=== PATIENT | male | born 1990 | race Caucasian/White ===

== ENCOUNTER 2017-12-01 18:19 | Emergency (ER) | END 2017-12-02 01:47 | disposition home or self-care (01) ==

== ENCOUNTER 2018-12-05 14:43 | Emergency (ER) | payer MEDICAID, OTHER ==
[~2018-12-05] VITALS: Ht 167.6 cm; Wt 85.0 kg
[~2018-12-05 14:43] MED LIST: CIPR500T4 PO; HYDR-4011 PO; METR500T PO; ONDA4TAB14 PO
[2018-12-05 14:47] VITALS: BP 158/106; PULSE 85; RESP 16; Ht 167.6 cm; Wt 85.0 kg
[2018-12-05] MEDS ORDERED: KETOROLAC 30 MG INJ IV STA (16:02)
[2018-12-05] MEDS ORDERED: KETOROLAC 30 MG INJ IM STA (16:08)
--- NOTE | 2018-12-05 16:29 | ERD ---
ER Documentation Chief Complaint Chief Complaint bodyaches x 1 week HPI 28-year-old male with past medical history who presents with complaint of generalized body aches and pain over 1 week. Was seen in ED 2 on the fifth of last month for similar complaints. At time of evaluation when asked if patient had any recent prior ED visits he however denied. He reports a number of pain complaints including generalized pain, bilateral knee pain, buttock pain, lower back pain, generalized abdominal pain, headache. Of all these pain complaints he is most concerned about right hand pain. He occasionally works as a laborer driver. Denies any recent injury to hand exam at the time of evaluation unremarkable with 5 out of 5 strength to both upper extremities. He denies any history of injury. He denies rash. He fevers, chills, SOB, persistent vomiting. He denies any red flag symptoms. ROS All systems reviewed and are negative except as per history of present illness. Medications Home Meds Active Scripts Ondansetron (Ondansetron Odt) 4 Mg Tab.rapdis, 4 MG PO Q6H PRN for NAUSEA AND/OR VOMITING, #20 TAB Prov:RICH GIMENEZ BAR HOST/HOSTESS 12/02/17 Metronidazole* (Flagyl*) 500 Mg Tablet, 500 MG PO TID for 10 Days, TAB Prov:RICH GIMENEZ BAR HOST/HOSTESS 12/02/17 Ciprofloxacin Hcl* (Ciprofloxacin Hcl*) 500 Mg Tablet, 500 MG PO BID for 10 Days, TAB Prov:RICH GIMENEZ BAR HOST/HOSTESS 12/02/17 Hydrocodone/Acetaminophen ([place] 5-325 Tablet) 1 Each Tablet, 1 TAB PO Q6H PRN for PAIN, #20 TAB Prov:RICH GIMENEZ BAR HOST/HOSTESS 12/02/17 Reported Medications [none] Unknown Strength No Conflict Check 12/01/17 Allergies Allergies: Coded Allergies: No Known Drug Allergies (Verified Allergy, Unknown, 12/05/18) PMhx/Soc Medical and Surgical Hx: pt denies Medical Hx, pt denies Surgical Hx Hx Alcohol Use: Yes (SOCIAL) Hx Substance Use: Yes (MARIJUANA last used 1 week ago) Hx Tobacco Use: No Physical Exam Vitals Vital Signs Date Temp Pulse Resp B/P (MAP) Pulse Ox O2 O2 Flow FiO2 Time Delivery Rate 12/05/18 99.0 85 16 158/106 99 14:47 (123) Physical Exam I have reviewed the triage vital signs. Const: Well nourished, well developed, appears stated age Eyes: PERRL, no conjunctival injection HENT: NCAT, Neck supple without meningismus CV: RRR, Warm, well-perfused extremities RESP: CTAB, Unlabored respiratory effort GI: soft, tenderness to RUQ but no tenderness when distracted with use of stethoscope, non-distended, no masses MSK: No gross deformities appreciated, full ROM to UE/LE, no signs injury, 5/5 strength throughout UE/LE, good hand strength b/l Skin: Warm, dry. No rashes Neuro: Alert, building maintenance custodian II-XII grossly intact. Sensation and motor function of extremities grossly intact. Psych: Appropriate mood and affect. Results 24 hrs Current Medications Medications Dose Sig/Kate Start Time Status Last (Trade) Ordered Route PRN Stop Time Admin Dose Reason Admin Ketorolac 30 mg ONCE STAT 12/05/18 DC Tromethamine IV 16:02 12/05/18 (Toradol) 16:04 Procedures/MDM 28 yo M admitted with multiple pain complaints. Evaluation and exam not concerning for any acute process warranting emergency room intervention. ED course: Toradol I discussed the patient's recurrent pain issues with the patient. I emphasized that my training was in the treatment of acute pain, that his physical exam here is quite reassuring, and that definitive treatment of chronic pain is not the role of the emergency department. I compassionately explained to patient that I felt providing opiate medications from the emergency department was counterproductive in that this may cause or exacerbate tolerance, acute overdose, physiological or psychological dependence, or withdrawal. We discussed that opiate use in the management of chronic pain is best managed by a single practitioner, such as a primary care provider or a pain specialist. We discussed adjunctive therapies such as heat, ice, and exercise, as well as non-opiate medications such as acetaminophen, NSAIDs, antidepressants, gabapentin, and pregabalin. I reiterated to patient that the most effective management of his chronic pain involves a multimodal approach coordinated by his primary care provider and often includes physical therapy, cognitive behavioral therapy, and referrals to practitioners such as anesthesiologists trained in chronic pain management. Departure Condition: Stable Referrals: [facility] ROMEO SOW PA-C Dec 05, 2018 16:20
[2018-12-05] MEDS ORDERED: OXYC-279 PO (16:30)
== END 2018-12-05 16:36 | disposition home or self-care (01) ==
LOC: FTE 14:43
DX: M25.561 Pain in right knee (principal); M25.562 Pain in left knee; M54.5 Low back pain; R10.84 Generalized abdominal pain; R51 Headache; M79.641 Pain in right hand
CPT/HCPCS: 96372; J1885; Z7502

== ENCOUNTER 2019-01-05 09:19 | Emergency (ER) | payer MEDICAID ==
[~2019-01-05] VITALS: Ht 162.6 cm; Wt 83.3 kg
[~2019-01-05 09:19] MED LIST changes: +OXYC-279 PO
[2019-01-05 10:05] VITALS: Ht 162.6 cm; Wt 83.3 kg
[2019-01-05] MEDS ORDERED: SOD CHLORIDE 0.9% 100 ML ONE (13:22)
[2019-01-05] MEDS ORDERED: IOHEXOL 300MG/ML 150 ML BTL ONE (13:22)
[2019-01-05] MEDS ORDERED: DOCU-144 PO (14:14)
[2019-01-05] MEDS ORDERED: ACET500C5 PO (14:14)
--- NOTE | 2019-01-05 14:19 | ERD ---
ER Documentation Chief Complaint Chief Complaint 1) BLOOD IN STOOL X1 WEEK 2) LT ELBOW PAIN X1.5 MONTHS HPI 28-year-old male presents with intermittent blood per rectum on his stool for last week. He may have mild sensation of pain. He may have a history of constipation. He denies diarrhea, vomiting, fevers, abdominal pain. Eyes any foreign travel or suspect food. Blood is bright red and was associated with bowel movement. Denies clots. ROS All systems reviewed and are negative except as per history of present illness. Medications Home Meds Active Scripts Acetaminophen* (Tylophen*) 500 Mg Capsule, 1 CAP PO Q6H PRN for PAIN AND OR ELEVATED TEMP, #20 CAP Prov:OLI EASTMAN MD 01/05/19 Docusate Sodium* (Colace*) 100 Mg Capsule, 100 MG PO BID, #60 CAP Prov:OLI EASTMAN MD 01/05/19 Oxycodone HCl/Acetaminophen (Percocet 5-325 mg Tablet) 1 Each Tablet, 1 EACH PO Q4, #7 TAB Prov:ROMEO SOW PA-C 12/05/18 Ondansetron (Ondansetron Odt) 4 Mg Tab.rapdis, 4 MG PO Q6H PRN for NAUSEA AND/OR VOMITING, #20 TAB Prov:RICH GIMENEZ NP 12/02/17 Metronidazole* (Flagyl*) 500 Mg Tablet, 500 MG PO TID for 10 Days, TAB Prov:RICH GIMENEZ NP 12/02/17 Ciprofloxacin Hcl* (Ciprofloxacin Hcl*) 500 Mg Tablet, 500 MG PO BID for 10 Days, TAB Prov:RICH GIMENEZ NP 12/02/17 Hydrocodone/Acetaminophen ([place] 5-325 Tablet) 1 Each Tablet, 1 TAB PO Q6H PRN for PAIN, #20 TAB Prov:RICH GIMENEZ NP 12/02/17 Reported Medications [none] Unknown Strength No Conflict Check 12/01/17 Allergies Allergies: Coded Allergies: No Known Drug Allergies (Verified Allergy, Unknown, 12/05/18) PMhx/Soc Medical and Surgical Hx: pt denies Medical Hx, pt denies Surgical Hx Hx Alcohol Use: Yes (stopped) Hx Substance Use: Yes (MARIJUANA stopped) Hx Tobacco Use: No FmHx Family History: No diabetes, No coronary disease, No other Physical Exam Vitals Vital Signs Date Temp Pulse Resp B/P (MAP) Pulse Ox O2 O2 Flow FiO2 Time Delivery Rate 01/05/19 98.4 66 18 129/60 98 Room Air 14:34 (83) 01/05/19 98.7 87 16 140/72 97 10:05 (94) Physical Exam Const: No acute distress Head: Atraumatic Eyes: Normal Conjunctiva ENT: Normal External Ears, Nose and Mouth. Neck: Full range of motion. No meningismus. Resp: Clear to auscultation bilaterally Cardio: Regular rate and rhythm, no murmurs Abd: Soft, non tender, non distended. Normal bowel sounds. Rectal exam shows brown stool without gross blood or melanotic stool. No rectal lesions or palpable internal lesions. Skin: No petechiae or rashes Back: No midline or flank tenderness Ext: No cyanosis, or edema Neur: Awake and alert Psych: Normal Mood and Affect Result Diagram: 01/05/19 1123 01/05/19 1123 Results 24 hrs Laboratory Tests Test 01/05/19 11:23 White Blood Count 6.1 10^3/ul Red Blood Count 5.19 10^6/ul Hemoglobin 15.2 g/dl Hematocrit 44.8 % Mean Corpuscular Volume 86.3 fl Mean Corpuscular Hemoglobin 29.3 pg Mean Corpuscular Hemoglobin Concent 33.9 g/dl Red Cell Distribution Width 12.2 % Platelet Count 361 10^3/UL Mean Platelet Volume 10.8 fl Immature Granulocytes % 0.300 % Neutrophils % 57.8 % Lymphocytes % 28.6 % Monocytes % 7.7 % Eosinophils % 4.6 % Basophils % 1.0 % Nucleated Red Blood Cells % 0.0 /100WBC Immature Granulocytes # 0.020 10^3/ul Neutrophils # 3.5 10^3/ul Lymphocytes # 1.7 10^3/ul Monocytes # 0.5 10^3/ul Eosinophils # 0.3 10^3/ul Basophils # 0.1 10^3/ul Nucleated Red Blood Cells # 0.0 10^3/ul Sodium Level 142 mmol/L Potassium Level 3.9 mmol/L Chloride Level 102 mmol/L Carbon Dioxide Level 27 mmol/L Anion Gap 13 Blood Urea Nitrogen 11 mg/dl Creatinine 0.86 mg/dl Est Glomerular Filtrat Rate mL/min > 60 mL/min Glucose Level 94 mg/dl Calcium Level 10.2 mg/dl Total Bilirubin 0.3 mg/dl Direct Bilirubin 0.00 mg/dl Indirect Bilirubin 0.3 mg/dl Aspartate Amino Transf (AST/SGOT) 21 IU/L Alanine Aminotransferase (ALT/SGPT) 21 IU/L Alkaline Phosphatase 62 IU/L Total Protein 8.2 g/dl Albumin 4.9 g/dl Globulin 3.30 g/dl Albumin/Globulin Ratio 1.48 Lipase 48 U/L Current Medications Medications Dose Sig/Kate Start Time Status Last (Trade) Ordered Route PRN Stop Time Admin Dose Reason Admin IV Flush 10 ml STK-MED 01/05/19 DC 01/05/19 (NS 10 ml) ONCE .ROUTE 13:01/05/19 13:37 13:23 Sodium 100 ml @ ud STK-MED 01/05/19 DC 01/05/19 Chloride ONCE .ROUTE 13:01/05/19 13:37 13:23 Iohexol 150 ml STK-MED 01/05/19 DC 01/05/19 (Omnipaque ONCE .ROUTE 13:01/05/19 13:37 300mg/ ml) 13:23 Procedures/MDM CBC and CMP normal. CT shows nonspecific thickening possibly under distention of the rectal area as well as under distention of the bladder. Patient denies any urinary complaints. Patient presents with rectal bleed for last week. We will treat empirically for constipation and internal hemorrhoids with Colace and Tylenol. Patient was advised that next step would be gastroenterology for colonoscopy for persistent symptoms. He has no signs of abdominal pain, obstruction, abscess, additional concerning symptoms. Patient has no active bleeding during ER course. The patient was stable with no new complaints during the ER course. Clinically, there is no current evidence to suggest meningitis, sepsis, acute abdomen, pneumonia, stroke, acute coronary syndrome, pulmonary embolism, aortic dissection or any other emergent condition appearing to require further evaluation or hospitalization. Patient counseled regarding my diagnostic impression and care plan. Prior to discharge all questions answered. Pt agrees with treatment plan and understands strict return precautions. Pt is instructed to follow up with primary care provider within 24-48 hours. Precautionary instructions provided including instructions to return to the ER if not improving or for any worsening or changing symptoms or concerns. Departure Diagnosis: Primary Impression: Rectal bleed Condition: Stable Patient Instructions: Rectal Bleed, Stable Referrals: SRINIVASA KELLER MD [facility] YOU HAVE RECEIVED A MEDICAL SCREENING EXAM AND THE RESULTS INDICATE THAT YOU DO NOT HAVE A CONDITION THAT REQUIRES URGENT TREATMENT IN THE EMERGENCY DEPARTMENT. FURTHER EVALUATION AND TREATMENT OF YOUR CONDITION CAN WAIT UNTIL YOU ARE SEEN IN YOUR DOCTORS OFFICE WITHIN THE NEXT 1-2 DAYS. IT IS YOUR RESPONSIBILITY TO MAKE AN APPOINTMENT FOR FOLOW-UP CARE. IF YOU HAVE A PRIMARY DOCTOR --you should call your primary doctor and schedule an appointment IF YOU DO NOT HAVE A PRIMARY DOCTOR YOU CAN CALL OUR PHYSICIAN REFERRAL HOTLINE AT IF YOU CAN NOT AFFORD TO SEE A PHYSICIAN YOU CAN CHOSE FROM THE FOLLOWING [facility] [address] [facility] [address] [facility] [facility] [address] [facility] [address] [place] [address] [facility]. [facility]. [address] Additional Instructions: Blood work normal. CT shows nonspecific findings of thickening. Recommend colonoscopy. Persistent symptoms. Will treat for constipation. Recheck for fevers, new worsening symptoms. May need authorization from primary doctor for specialist visit. OLI EASTMAN MD Jan 05, 2019 14:19
[2019-01-05 14:34] VITALS: BP 129/60; PULSE 66; RESP 18
== END 2019-01-05 14:37 | disposition home or self-care (01) ==
LOC: FTE 09:19
DX: K62.5 Hemorrhage of anus and rectum (principal)
CPT/HCPCS: 36415; 74177; 80053; 83690; 85025; Q9967; Z7502; Z7610

== ENCOUNTER 2019-01-26 08:19 | Day surgery (SDC) | payer MEDICAID ==
[~2019-01-26] VITALS: Ht 167.6 cm; Wt 80.3 kg
[~2019-01-26 08:19] MED LIST changes: +ACET500C5 PO; +DOCU-144 PO
[2019-01-26] MEDS ORDERED: AMOXICILLIN (08:58)
[2019-01-26] MEDS ORDERED: TYLENOL PRN (08:58)
[2019-01-26 09:04] VITALS: Ht 167.6 cm; Wt 80.3 kg
[2019-01-26 09:28] VITALS: BP 127/73; PULSE 63; RESP 19
--- NOTE | 2019-01-26 09:47 | PREAC ---
Date/Time of Note Date/Time of Note DATE: 01/26/19 TIME: 09:45 Anesthesia Eval and Record Evaluation Time Pre-Procedure Interview DATE: 01/26/19 TIME: 09:45 Age 28 Sex male NPO: 8 hrs Preoperative diagnosis Abdominal Pain and Rectal Bleeding Planned procedure EGD, Colonoscopy Past Medical History Past Medical History: Includes Recreational drugs: Marijuana, Cocaine Surgery & Anesthesia Issues No known issue Meds Anticoagulation: No Beta Ny within 24 hr: No Reason Beta Ny not given: Pt. not on B-Ny Reported Medications [Tylenol Prn] No Conflict Check 01/26/19 [Amoxicillin] No Conflict Check 01/26/19 Discontinued Reported Medications [none] Unknown Strength No Conflict Check 12/01/17 Discontinued Scripts Acetaminophen* (Tylophen*) 500 Mg Capsule, 1 CAP PO Q6H PRN for PAIN AND OR ELEVATED TEMP, #20 CAP Prov:OLI EASTMAN MD 01/05/19 Docusate Sodium* (Colace*) 100 Mg Capsule, 100 MG PO BID, #60 CAP Prov:OLI EASTMAN MD 01/05/19 Oxycodone HCl/Acetaminophen (Percocet 5-325 mg Tablet) 1 Each Tablet, 1 EACH PO Q4, #7 TAB Prov:ROMEO SOW PA-C 12/05/18 Ondansetron (Ondansetron Odt) 4 Mg Tab.rapdis, 4 MG PO Q6H PRN for NAUSEA AND/OR VOMITING, #20 TAB Prov:RICH GIMENEZ NP 12/02/17 Metronidazole* (Flagyl*) 500 Mg Tablet, 500 MG PO TID for 10 Days, TAB Prov:RICH GIMENEZ NP 12/02/17 Ciprofloxacin Hcl* (Ciprofloxacin Hcl*) 500 Mg Tablet, 500 MG PO BID for 10 Days, TAB Prov:RICH GIMENEZ NP 12/02/17 Hydrocodone/Acetaminophen ([place] 5-325 Tablet) 1 Each Tablet, 1 TAB PO Q6H PRN for PAIN, #20 TAB Prov:RICH GIMENEZ NP 12/02/17 Meds reviewed: Yes Allergies Coded Allergies: No Known Drug Allergies (Verified Allergy, Unknown, 12/05/18) Allergies Reviewed: Yes Labs/Studies Labs Reviewed: Reviewed by anesthesiologist test: N/A Studies: ECG (n/a), CXR (n/a) Pre-procedure Exam Last vitals Vital Signs Date Temp Pulse Resp B/P (MAP) Pulse Ox O2 O2 Flow FiO2 Time Delivery Rate 01/26/19 97.7 63 19 127/73 99 Room Air 09:28 (91) Airway: Adequate mouth opening, Adequate thyromental dist Mallampati: Mallampati II Teeth: Normal Lung: Normal Heart: Normal ASA Physical Status ASA physical status: 2 Emergency: None Planned Anesthetic General/MAC: MAC Planned Pain Management Parenteral pain med Pre-operative Attestations Prior to commencing anesthesia and surgery, the patient was re-evaluated, there was verification of: *The patient's identity *The results of appropriate recent lab work and preoperative vital signs *The above evaluation not changing prior to induction *Anesthetic plan, risk benefits, alternative and complications discussed with patient/family; questions answered; patient/family understands, accepts and wishes to proceed. VIC MENJIVAR MD Jan 26, 2019 09:47
[2019-01-26] MEDS ORDERED: PROPOFOL 60 ML ONE (10:51)
--- NOTE | 2019-01-26 10:52 | PAC ---
Date/Time of Note Date/Time of Note DATE: 01/26/19 TIME: 10:51 Post-Anesthesia Notes Post-Anesthesia Note Last documented vital signs Vital Signs Date Temp Pulse Resp B/P (MAP) Pulse Ox O2 O2 Flow FiO2 Time Delivery Rate 01/26/19 97.7 63 19 127/73 99 Room Air 10:52 (91) Activity: WNL Respiratory function: WNL Cardiovascular function: WNL Mental status: Baseline Pain reasonably controlled: Yes Hydration appropriate: Yes Nausea/Vomiting absent: Yes VIC MENJIVAR MD Jan 26, 2019 10:52
[2019-01-26 11:17] VITALS: BP 103/52; PULSE 68; RESP 18
--- NOTE | 2019-01-27 14:08 | CONS ---
DATE OF ADMISSION: 01/26/2019 DATE OF CONSULTATION: PATIENT NAME: WILMER WILL TYPE OF CONSULTATION: Preoperative gastroenterology. I thank you very much for this kind referral. HISTORY OF PRESENT ILLNESS: Mr. Wilmer Will is a 28-year-old male patient who has been referred to me for further evaluation of rectal bleeding. The patient also complains of upper abdominal pain. The patient went to the emergency room and rectal examination did not reveal any abnormality. No p ast history of inflammatory bowel disease or colon neoplasm. Appetite is good. No weight loss. No history of peptic ulcer disease. Not on nonsteroidal anti-inflammatory agents. No history of gallst ones or liver disease. Not a hypertensive or diabetic. No heart disease, lung problem or kidney dis ease. SOCIAL HISTORY: Nonsmoker. History of marijuana use. The patient also has history of alcohol abuse . FAMILY HISTORY: No family history of gastrointestinal tract neoplasm. ALLERGIES: NO DRUG ALLERGIES. MEDICATIONS: None. PHYSICAL EXAMINATION: VITAL SIGNS: He is 5 feet, 6 inches tall and weighs 185 pounds. HEART: Normal heart sounds. LUNGS: Clear. ABDOMEN: Soft. No masses. Normal bowel sounds. RECTAL: Has been already done in the emergency room and no abnormality was detected. NEUROLOGIC: Normal. IMPRESSION: 1. Rectal bleeding. 2. Upper abdominal pain, not responding to therapy. 3. History of marijuana and alcohol abuse. PLAN: 1. Colonoscopy and upper endoscopy for further evaluation. 2. Because of the use of marijuana and alcohol, the patient will be resistant to narcotics and he ne eds monitored anesthesia care. The procedures and possible complications are well explained to the patient. He understands and cons ents to the procedures. I thank you once again. With warmest personal regards, Dictated By: JANE LUND/TRAE Conf#: [id number] DID#: [id number]
== END 2019-01-26 13:12 | disposition home or self-care (01) ==
LOC: GIL 08:19
PROVIDERS: ATTEND Internal Medicine Gastroenterology
DX: K29.30 Chronic superficial gastritis without bleeding (principal); K64.8 Other hemorrhoids
CPT/HCPCS: 43239; 45378; 88305; 88312; Z7610

== ENCOUNTER 2019-04-27 09:28 | Emergency (ER) | payer MEDICAID, OTHER ==
[~2019-04-27] VITALS: Ht 165.1 cm; Wt 82.1 kg
[~2019-04-27 09:28] MED LIST changes: -ACET500C5 PO; +AMOXICILLIN; -CIPR500T4 PO; -HYDR-4011 PO; +HYDR25SU23 PR; -METR500T PO; -ONDA4TAB14 PO; -OXYC-279 PO; +TYLENOL PRN
[2019-04-27 09:34] VITALS: Ht 165.1 cm; Wt 82.1 kg
[2019-04-27 10:09] VITALS: BP 133/78; PULSE 77; RESP 18
--- NOTE | 2019-04-27 10:34 | ERD ---
ER Documentation Chief Complaint Chief Complaint rectal pain, think my hemorrhoids burst HPI 28-year-old male presenting with rectal pain. Patient has a history of hemorrhoids and strain yesterday while using the restroom with blood. Patient has no abdominal pain and denies any fevers. Denies other medical problems. NKDA. Surgical history denies. Social history denies ROS All systems reviewed and are negative except as per history of present illness. Medications Home Meds Active Scripts Hydrocortisone Acetate (Anusol-Hc) 25 Mg Supp.rect, 1 SUPP OH BID PRN for HEMORROID PAIN/ITCHING, #12 SUPP.RECT Prov:AMALIA TOVAR PA-C 04/27/19 Docusate Sodium* (Colace*) 100 Mg Capsule, 100 MG PO TID, #30 CAP Prov:AMALIA TOVAR PA-C 04/27/19 Reported Medications [Tylenol Prn] No Conflict Check 01/26/19 [Amoxicillin] No Conflict Check 01/26/19 Allergies Allergies: Coded Allergies: No Known Drug Allergies (Verified Allergy, Unknown, 04/27/19) PMhx/Soc History of Surgery: No Anesthesia Reaction: No Hx Neurological Disorder: No Hx Respiratory Disorders: No Hx Cardiac Disorders: No Hx Psychiatric Problems: No Hx Miscellaneous Medical Probl: No Hx Alcohol Use: Yes (HX OF ETOH ABUSE) Hx Substance Use: Yes (HX OF COCAINE AND MARIJUANA USE) Hx Tobacco Use: No Smoking Status: Current every day smoker FmHx Family History: No diabetes, No coronary disease, No other Physical Exam Vitals Vital Signs Date Temp Pulse Resp B/P (MAP) Pulse Ox O2 O2 Flow FiO2 Time Delivery Rate 04/27/19 98.0 77 18 133/78 100 Room Air 10:09 (96) 04/27/19 98.0 64 18 144/83 99 09:34 (103) Physical Exam GENERAL: The patient is well-appearing, well-nourished, in no acute distress HEENT: Atraumatic. Conjunctivae are pink. Pupils equal, round, and reactive to light. There is no scleral icterus. Tympanic membranes clear bilaterally. Oropharynx clear. CHEST: Clear to auscultation bilaterally. There are no rales, wheezes or rhonchi. HEART: Regular rate and rhythm. No murmurs, clicks, rubs or gallops. EXTREMITIES: Equal pulses bilaterally. There is no peripheral clubbing, cyanosis or edema. No focal swelling or erythema. Full range of motion. NEUROLOGIC: Alert and oriented. Cranial nerves II through XII intact. Motor strength in all 4 extremities with 5 out of 5 strength. Sensation grossly intact. Normal speech and gait. SKIN: Hemorrhoids noted to anus. No thrombosis noted Procedures/MDM MDM: 20-year-old male presenting with hemorrhoids. Patient was discharged with stool softeners and recommended to do sitz bath at home. There is no active bleeding on my evaluation. Patient is told if symptoms change or worsen to return immediately to the ER. I have low suspicion for acute abdominal e mergency. I have low suspicion for intestinal emergency. Patient is told symptoms change or worsen to return the ER immediately. All questions answered at discharge Departure Diagnosis: Primary Impression: Hemorrhoid Condition: Stable Patient Instructions: Hemorrhoids Referrals: [facility] YOU HAVE RECEIVED A MEDICAL SCREENING EXAM AND THE RESULTS INDICATE THAT YOU DO NOT HAVE A CONDITION THAT REQUIRES URGENT TREATMENT IN THE EMERGENCY DEPARTMENT. FURTHER EVALUATION AND TREATMENT OF YOUR CONDITION CAN WAIT UNTIL YOU ARE SEEN IN YOUR DOCTORS OFFICE WITHIN THE NEXT 1-2 DAYS. IT IS YOUR RESPONSIBILITY TO MAKE AN APPOINTMENT FOR FOLOW-UP CARE. IF YOU HAVE A PRIMARY DOCTOR --you should call your primary doctor and schedule an appointment IF YOU DO NOT HAVE A PRIMARY DOCTOR YOU CAN CALL OUR PHYSICIAN REFERRAL HOTLINE AT IF YOU CAN NOT AFFORD TO SEE A PHYSICIAN YOU CAN CHOSE FROM THE FOLLOWING [facility] [address] [facility]. [facility] [address] [facility] [facility] [address] [facility] [facility] [address] [facility]. [facility] [address] [facility]. [facility]. [address] Additional Instructions: FOLLOW UP WITH YOUR PRIMARY CARE PHYSICIAN TOMORROW.Return to this facility if you are not improving as expected. AMALIA TOVAR PA-C Apr 27, 2019 10:34
== END 2019-04-27 10:10 | disposition home or self-care (01) ==
LOC: FTE 09:28
DX: K64.9 Unspecified hemorrhoids (principal); F17.210 Nicotine dependence, cigarettes, uncomplicated
CPT/HCPCS: 99282